=== PATIENT | female | born 1995 | race Caucasian/White ===

== ENCOUNTER → 2023-11-02 13:26 | Outpatient (REF) | payer BC, SELFPAY ==
[2023-11-02 14:25] LABS: % Basophils 0.3 % (0-2); % Eosinophils 0.6 % (0-6); % Immature Granulocytes 0.3 % (0-0.5); % Lymphocytes 22.9 % (20.5-51.1); % Monocytes 6.1 % (1.7-9.3); % Neutrophils 69.8 % (42.2-75.2); Absolute Eosinophils 0.1 10^3/uL (0-0.7); Absolute Monocytes 0.5 10^3/uL (0.1-0.6); Absolute Neutrophils 6.1 10^3/uL (1.4-6.5); Hematocrit 41.7 % (37.0-47.0); Hemoglobin 14.2 g/dL (12.0-16.0); Mean Corp Hgb Conc. 34.1 g/dL (33.0-37.0); Mean Corpuscular Hgb 31.8 pg (27.0-31.0); Mean Corpuscular Volume 93.3 fL (81.0-99.0); Mean Platelet Volume 11.5 fL (7.4-10.4); Nucleated Red Blood Cells % 0 %; Platelet Count 171 10^3/uL (130-400); Red Blood Cell Count 4.47 10^6/uL (4.20-5.40); Red Cell Dist. Width 12.4 % (11.5-14.5); White Blood Cell Count 8.8 10^3/uL (4.8-10.8)
[2023-11-02 14:57] LABS: ALT (SGPT) 14 U/L (0-35); AST (SGOT) 25 U/L (14-36); Albumin 5.1 g/dl (3.5-5.0); Alkaline Phosphatase 61 U/L (38-126); Blood Urea Nitrogen 14 mg/dl (7-17); Calcium 9.8 mg/dl (8.4-10.2); Carbon Dioxide 26 mmol/L (22-30); Chloride 99 mmol/L (98-107); Glucose 128 mg/dl (70-99); Potassium 3.7 mmol/L (3.5-5.1); Sodium 136 mmol/L (135-145); Total Bilirubin 0.4 mg/dl (0.2-1.3); Total Protein 7.6 g/dl (6.3-8.2); eGFR > 60.00
[2023-11-02 15:01] LABS: C-Reactive Protein < 5.00 mg/L (0.0-10.00); Erythrocyte Sed Rate 2 mm/hour (0-20)
== END ==
LOC: REG 13:26
PROVIDERS: ATTENDING PHYSICIAN Internal Medicine Rheumatology; FAMILY PHYSICIAN Emergency Medicine
DX: R76.8 Other specified abnormal immunological findings in serum (principal); R53.82 Chronic fatigue, unspecified; M35.7 Hypermobility syndrome
CPT/HCPCS: 36415; 80053; 85025; 85652; 86140

== ENCOUNTER → 2023-12-15 15:09 | Outpatient (REF) | payer BC, SELFPAY | LOC: RAD 15:09 | PROVIDERS: ATTENDING PHYSICIAN Internal Medicine Gastroenterology; FAMILY PHYSICIAN Emergency Medicine; REFERRING PHYSICIAN Internal Medicine Rheumatology | DX: K59.09 Other constipation (principal) | CPT/HCPCS: 74019 ==

== ENCOUNTER → 2024-02-26 14:18 | Outpatient (REF) | payer BC, SELFPAY ==
[2024-02-26 14:51] LABS: Erythrocyte Sed Rate 4 mm/hour (0-20)
[2024-02-26 14:55] LABS: Hematocrit 42.3 % (37.0-47.0); Mean Corp Hgb Conc. 33.1 g/dL (33.0-37.0); Mean Corpuscular Hgb 31.5 pg (27.0-31.0); Mean Corpuscular Volume 95.1 fL (81.0-99.0); Mean Platelet Volume 11.5 fL (7.4-10.4); Platelet Count 154 10^3/uL (130-400); Red Blood Cell Count 4.45 10^6/uL (4.20-5.40); Red Cell Dist. Width 12.7 % (11.5-14.5); White Blood Cell Count 5.4 10^3/uL (4.8-10.8)
[2024-02-26 15:25] LABS: ALT (SGPT) 23 U/L (0-35); AST (SGOT) 37 U/L (14-36); Albumin 4.6 g/dl (3.5-5.0); Alkaline Phosphatase 71 U/L (38-126); Blood Urea Nitrogen 9 mg/dl (7-17); Calcium 9.3 mg/dl (8.4-10.2); Carbon Dioxide 27 mmol/L (22-30); Chloride 102 mmol/L (98-107); Glucose 101 mg/dl (70-99); Potassium 3.9 mmol/L (3.5-5.1); Sodium 138 mmol/L (135-145); Total Bilirubin 0.5 mg/dl (0.2-1.3); Total Protein 7.1 g/dl (6.3-8.2); eGFR > 60.00
[2024-02-26 16:01] LABS: % Basophils 0.6 % (0-2); % Eosinophils 2.2 % (0-6); % Immature Granulocytes 0.4 % (0-0.5); % Lymphocytes 18.3 % (20.5-51.1); % Monocytes 11.3 % (1.7-9.3); % Neutrophils 67.2 % (42.2-75.2); Absolute Eosinophils 0.1 10^3/uL (0-0.7); Absolute Monocytes 0.6 10^3/uL (0.1-0.6); Absolute Neutrophils 3.7 10^3/uL (1.4-6.5); Nucleated Red Blood Cells % 0 %
== END ==
LOC: REG 14:18
PROVIDERS: ATTENDING PHYSICIAN Internal Medicine Rheumatology; FAMILY PHYSICIAN Emergency Medicine; REFERRING PHYSICIAN Internal Medicine Gastroenterology
DX: M35.00 Sjogren syndrome, unspecified (principal); M35.7 Hypermobility syndrome; R53.82 Chronic fatigue, unspecified; R76.8 Other specified abnormal immunological findings in serum; R19.5 Other fecal abnormalities
CPT/HCPCS: 36415; 80053; 83993; 85025; 85652; 86140; 87045; 87046; 87077; 87177; 87209; 87324; 87328; 87329; 87427; 87449; 89055

== ENCOUNTER 2024-03-01 20:31 | Emergency (ER) | payer BC, SELFPAY ==
[2024-03-01 20:34] VITALS: BP 144/92
[2024-03-01 23:18] LABS: HCG, Urine Qualitative Screen Negative; Urine Albumin Negative (Neg - Trace); Urine Bilirubin Negative (Negative); Urine Character Clear (Clear); Urine Color Yellow; Urine Glucose Negative (Negative); Urine Ketone Negative (Negative); Urine Leukocyte Negative (Negative); Urine Nitrite Negative (Negative); Urine Occult Blood Negative (Negative); Urine Specific Gravity 1.005 (<1.030); Urine Urobilinogen Negative (Neg - 1+)
--- NOTE | 2024-03-01 23:42 | ED.GENMED ---
History of Present Illness
<Iman Nevarez NP - Last Filed: 03/01/24 23:48>
General
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
Source: patient
Exam Limitations: none
Time Seen by Provider: 03/01/24 21:19
Nursing documentation reviewed up to this point in time: agreed with
History of Present Illness
History of Present Illness:
Patient to ED with left inguinal discomfort. Develope discomfort today. States she noticed swelling to site. Also reports vaginal spotting. States she is due for period but is only spotting. To ED accompanied by mother for eval. Denies
fever/chills. Recent COVID illness.
Past History
<Iman Nevarez NP - Last Filed: 03/01/24 23:48>
Past History
ED Past Medical History: HTN, Other (UTI, idiopathic urticaria) and Other (thyroid nodule)
ED Past Surgical History: Tonsilectomy
Social History
Tobacco: Non-smoker
Alcohol: Occasional
Drug: None
Personal: Single
Living: with family
Employment: Student
Family History
Family History: Negative Early CAD or Sudden
Review of Systems
<Iman Nevarez NP - Last Filed: 03/01/24 23:48>
Review of Systems
Allergies reviewed?: Yes
All Other Systems: ROS reviewed and negative except as documented in HPI and ROS
Constitutional: Reports no symptoms
EENT: Reports no symptoms
Respiratory: Reports no symptoms
Cardiac: Reports no symptoms
ABD/GI: Reports no symptoms
: Reports other (vaginal spotting)
Musculoskeletal: Reports other (left inguinal swelling, pain)
Skin: Reports no symptoms
Neurological: Reports no symptoms
Psychiatric: Reports no symptoms
Phy Exam
<Iman Nevarez NP - Last Filed: 03/01/24 23:48>
General Physical Exam
General Presentation: well appearing and no apparent distress
General age: appears stated age
General Skin: warm and dry
General Habitus: normal
Gastrointestinal Exam
Gastrointestinal Exam: non tender, soft, no organomegaly, no pulsatile mass, non distended and other (Left inguinal tenderness. Small firm left inguinal node noted)
Musculoskeletal Exam
Musculoskeletal Exam: full ROM and neuro vasc intact
Skin Exam
Skin Exam: normal color, warm/dry and no rash
Psychiatric Exam
Psychiatric Exam: normal mood/affect
Course
<Iman Nevarez NP - Last Filed: 03/01/24 23:48>
Orders/Labs/Results
Orders:
Orders
03/01/24 22:13
US Non Vasc LOWER Ext LT Urgent
Reason For Exam: inguinal pain, swelling
03/01/24 22:14
Test Result ONCE
Pelvis (Non Obstetric) US [US Pelvis Only (non-obstetric)] Urgent
Comment:
Reason For Exam: abnormal bleeding
03/01/24 23:09
HCG, Urine Qualitative Screen Urgent
Date Specimen was Collected: 03/01/24
Time Specimen was Collected: 22:17
Urinalysis Reflex To Culture Urgent
Date Specimen was Collected: 03/01/24
Time Specimen was Collected: 22:17
Vital Signs
Initial and Last Documented VS:
Initial Vital Signs
Temp Pulse Resp BP Pulse Ox
97.4 F 92 18 144/92 100
03/01/24 20:34 03/01/24 20:34 03/01/24 20:34 03/01/24 20:34 03/01/24 20:34
Last Documented Vital Signs
Temp Pulse Resp BP Pulse Ox
97.4 F 92 18 144/92 100
03/01/24 20:34 03/01/24 20:34 03/01/24 20:34 03/01/24 20:34 03/01/24 20:34
<Grayson Rojo DO - Last Filed: 03/01/24 23:57>
Orders/Labs/Results
Orders:
Orders
03/01/24 22:13
US Non Vasc LOWER Ext LT Urgent
Reason For Exam: inguinal pain, swelling
03/01/24 22:14
Test Result ONCE
Pelvis (Non Obstetric) US [US Pelvis Only (non-obstetric)] Urgent
Comment:
Reason For Exam: abnormal bleeding
03/01/24 23:09
HCG, Urine Qualitative Screen Urgent
Date Specimen was Collected: 03/01/24
Time Specimen was Collected: 22:17
Urinalysis Reflex To Culture Urgent
Date Specimen was Collected: 03/01/24
Time Specimen was Collected: 22:17
Vital Signs
Initial and Last Documented VS:
Initial Vital Signs
Temp Pulse Resp BP Pulse Ox
97.4 F 92 18 144/92 100
03/01/24 20:34 03/01/24 20:34 03/01/24 20:34 03/01/24 20:34 03/01/24 20:34
Last Documented Vital Signs
Temp Pulse Resp BP Pulse Ox
97.4 F 92 18 144/92 100
03/01/24 20:34 03/01/24 20:34 03/01/24 20:34 03/01/24 20:34 03/01/24 20:34
<Iman Nevarez NP - Last Filed: 03/01/24 23:48>
*Radiology
Radiology exam reviewed: radiology read reviewed
*Pulse Oximetry
Patient hypoxic: no
*Critical Care Note
Total Time (30-74mins, 75-104mins- exclusive of procedures): Not Applicable
<Iman Nevarez NP - Last Filed: 03/01/24 23:48>
Update Note
Update Note:
Case discussed with Dr. Rojo who also evaluated this patient. She had labs drawn on thursday which I was able to review. No concerning results. US report reviewed wtih patient. Normal pelvic US. Small left inguinal node noted. She is
discharged home and will follow up with her PCP.
ED Attending Note
<Iman Nevarez INDUSTRIAL MACHINERY MECHANIC - Last Filed: 03/01/24 23:48>
-
Portions of this chart may have been created with voice recognition software.� Occasional wrong word or��sound alike� substitutions may have occurred due to the inherent limitations of voice recognition software.
<Grayson Rojo, - Last Filed: 03/01/24 23:57>
ED Attending Note
Patient seen and examined by attending physician: Yes
I performed the substantive portion of visit, reviewed & personally made and approve the management plan that is documented in note by myself or MAURICIO.: Yes
ED Attending Note:
28-year-old female with prominent lymph nodes in her left groin. I personally examined these lymph nodes. They are mobile and ropey. Did not appear to be an abscess. Patient seen and examined in conjunction with the nurse practitioner. I have
reviewed and agree with her history and treatment plan. Patient to be discharged home in improved condition.
Discharge Plan
Departure
Patient Disposition: Home (Routine Discharge)
Date of Disposition: 03/01/24
Time of Disposition: 23:41
Patient with high blood pressure during this ER visit?: No
Condition: Good
Covid-19: Not Applicable
Discharge Problem:
Inguinal adenopathy
Instructions: Lymphadenitis (DC)
Prescriptions:
No Action
fexofenadine [Margaret] 180 MG tablet
180 mg PO DAILY
montelukast 10 MG tablet
10 mg PO QPM
medroxyprogesterone [Depo-SubQ provera 104] 104 MG/0.65 ML syringe
104 mg SQ .Q3 MONTHS
Lactobacillus acidophilus [Probiotic] 1 EACH capsule
1 ea PO DAILY
hydrocortisone acetate 25 MG suppository
25 mg MT BID Qty: 10 0RF
Referrals:
Jenifer Munoz MD [Family Provider] - Follow up in 2-3 days
Interventions
Interventions:
*Risk Screen - Suicide Last Done: 03/01/24 20:34
*Neglect/Abuse Screening Last Done: 03/01/24 20:34
HS-Qgaqhw-Wxmtqptcpr Assessment Last Done: 03/01/24 22:56
ED-Female Genitourinary Assessment Last Done: 03/01/24 22:56
Discharge Date and Time
Print Language: HUNGARIAN
[2024-03-02 00:08] VITALS: BP 116/80
== END 2024-03-02 00:10 | disposition home or self-care (01) ==
LOC: EMR 20:31
PROVIDERS: Nurse Practitioner; EMERGENCY PHYSICIAN Emergency Medicine; FAMILY PHYSICIAN Emergency Medicine
DX: R59.0 Localized enlarged lymph nodes (principal)
CPT/HCPCS: 99284; 76856; 76882; 81003; 81025

== ENCOUNTER → 2024-04-07 16:23 | Outpatient (REF) | payer BC, SELFPAY | LOC: RAD 16:23 | PROVIDERS: ATTENDING PHYSICIAN Nurse Practitioner Family; FAMILY PHYSICIAN Emergency Medicine | DX: M54.50 Low back pain, unspecified (principal); R59.9 Enlarged lymph nodes, unspecified | CPT/HCPCS: 72110 ==

== ENCOUNTER → 2024-04-22 14:22 | Outpatient (REF) | payer BC, SELFPAY | LOC: HWRAD 14:22 | PROVIDERS: ATTENDING PHYSICIAN Nurse Practitioner Family; FAMILY PHYSICIAN Emergency Medicine; REFERRING PHYSICIAN Internal Medicine Rheumatology | DX: R59.9 Enlarged lymph nodes, unspecified (principal); A07.2 Cryptosporidiosis; R10.2 Pelvic and perineal pain | CPT/HCPCS: 74177; 76882; Q9967 ==

== ENCOUNTER → 2024-07-12 15:01 | Outpatient (REF) | payer BC, SELFPAY ==
[2024-07-12 16:17] LABS: Free T4 0.93 ng/dl (0.78-2.19)
[2024-07-12 16:31] LABS: TSH 0.83 uIU/ml (0.47-4.68)
== END ==
LOC: RAD 15:01
PROVIDERS: ATTENDING PHYSICIAN Emergency Medicine
DX: E04.1 Nontoxic single thyroid nodule (principal)
CPT/HCPCS: 36415; 76536; 84439; 84443

== ENCOUNTER → 2024-09-22 13:49 | Outpatient (REF) | payer BC, SELFPAY ==
[2024-09-22 14:27] LABS: % Basophils 0.7 % (0-2); % Eosinophils 1.4 % (0-6); % Immature Granulocytes 0.2 % (0-0.5); % Lymphocytes 29.8 % (20.5-51.1); % Monocytes 10.9 % (1.7-9.3); Absolute Eosinophils 0.1 10^3/uL (0-0.7); Absolute Lymphocytes 1.3 10^3/uL (1.2-3.4); Absolute Monocytes 0.5 10^3/uL (0.1-0.6); Absolute Neutrophils 2.5 10^3/uL (1.4-6.5); Hematocrit 45.3 % (37.0-47.0); Hemoglobin 14.8 g/dL (12.0-16.0); Mean Corp Hgb Conc. 32.7 g/dL (33.0-37.0); Mean Corpuscular Hgb 32.1 pg (27.0-31.0); Mean Corpuscular Volume 98.3 fL (81.0-99.0); Mean Platelet Volume 11.2 fL (7.4-10.4); Nucleated Red Blood Cells % 0 %; Platelet Count 168 10^3/uL (130-400); Red Blood Cell Count 4.61 10^6/uL (4.20-5.40); Red Cell Dist. Width 12.6 % (11.5-14.5); White Blood Cell Count 4.4 10^3/uL (4.8-10.8)
[2024-09-22 14:53] LABS: Erythrocyte Sed Rate 5 mm/hour (0-20)
[2024-09-22 14:58] LABS: ALT (SGPT) 20 U/L (0-35); AST (SGOT) 23 U/L (14-36); Albumin 5.1 g/dl (3.5-5.0); Alkaline Phosphatase 69 U/L (38-126); Blood Urea Nitrogen 11 mg/dl (7-17); Calcium 9.8 mg/dl (8.4-10.2); Carbon Dioxide 28 mmol/L (22-30); Chloride 102 mmol/L (98-107); Glucose 92 mg/dl (70-99); Potassium 4.5 mmol/L (3.5-5.1); Sodium 139 mmol/L (135-145); Total Bilirubin 0.8 mg/dl (0.2-1.3); Total Protein 7.4 g/dl (6.3-8.2); eGFR > 60.00
[2024-09-22 15:02] LABS: C-Reactive Protein < 5.00 mg/L (0.0-10.00)
== END ==
LOC: REG 13:49
PROVIDERS: ATTENDING PHYSICIAN Internal Medicine Rheumatology; FAMILY PHYSICIAN Emergency Medicine
DX: G93.32 Myalgic encephalomyelitis/chronic fatigue syndrome (principal)
CPT/HCPCS: 36415; 80053; 85025; 85652; 86140

== ENCOUNTER → 2025-02-15 16:50 | Outpatient (REF) | payer BC, SELFPAY | LOC: RAD 16:50 | PROVIDERS: ATTENDING PHYSICIAN Internal Medicine; FAMILY PHYSICIAN Emergency Medicine | DX: M46.1 Sacroiliitis, not elsewhere classified (principal); M54.50 Low back pain, unspecified | CPT/HCPCS: 72100; 72202 ==

== ENCOUNTER → 2025-04-12 15:37 | Outpatient (REF) | payer BC, SELFPAY | LOC: RAD 15:37 | PROVIDERS: ATTENDING PHYSICIAN Internal Medicine; FAMILY PHYSICIAN Emergency Medicine | DX: R59.1 Generalized enlarged lymph nodes (principal); R59.0 Localized enlarged lymph nodes | CPT/HCPCS: 76536; 76882 ==

== ENCOUNTER → 2025-05-22 15:40 | Outpatient (REF) | payer BC, SELFPAY ==
[2025-05-22 17:00] LABS: Urine Character Clear (Clear)
[2025-05-22 17:15] LABS: Hematocrit 41.4 % (37.0-47.0); Hemoglobin 13.1 g/dL (12.0-16.0); Mean Corp Hgb Conc. 31.6 g/dL (33.0-37.0); Mean Corpuscular Volume 95.4 fL (81.0-99.0); Nucleated Red Blood Cells % 0 %; Platelet Count 144 10^3/uL (130-400); Red Cell Dist. Width 12.7 % (11.5-14.5)
[2025-05-22 17:33] LABS: ALT (SGPT) 17 U/L (0-35); AST (SGOT) 24 U/L (14-36); Albumin 4.5 g/dl (3.5-5.0); Alkaline Phosphatase 48 U/L (38-126); Blood Urea Nitrogen 9 mg/dl (7-17); Calcium 9.4 mg/dl (8.4-10.2); Carbon Dioxide 28 mmol/L (22-30); Chloride 106 mmol/L (98-107); Glucose 98 mg/dl (70-99); Potassium 4.1 mmol/L (3.5-5.1); Sodium 136 mmol/L (135-145); Total Protein 7.2 g/dl (6.3-8.2); eGFR > 60.00
[2025-05-22 17:36] LABS: C-Reactive Protein < 5.00 mg/L (0.0-10.00)
[2025-05-22 17:53] LABS: Free T3 3.76 pg/ml (2.77-5.27)
[2025-05-22 18:07] LABS: TSH 1.01 uIU/ml (0.47-4.68)
== END ==
LOC: REG 15:40
PROVIDERS: ATTENDING PHYSICIAN Internal Medicine; FAMILY PHYSICIAN Emergency Medicine
DX: T50.905A Adverse effect of unspecified drugs, medicaments and biological substances, initial encounter (principal); Z79.899 Other long term (current) drug therapy; M35.9 Systemic involvement of connective tissue, unspecified; M06.4 Inflammatory polyarthropathy; M32.9 Systemic lupus erythematosus, unspecified; Z51.81 Encounter for therapeutic drug level monitoring; L93.2 Other local lupus erythematosus; E21.5 Disorder of parathyroid gland, unspecified; E07.9 Disorder of thyroid, unspecified
CPT/HCPCS: 36415; 80053; 81003; 82570; 83516; 83970; 84156; 84439; 84443; 84481; 85025; 85652; 86140; 86160; 86225

== ENCOUNTER → 2025-05-29 10:43 | Outpatient (REF) | payer BC, SELFPAY ==
[2025-05-29 11:27] LABS: 24 Hour Urine Total Volume 2600 ml
== END ==
LOC: REG 10:43
PROVIDERS: ATTENDING PHYSICIAN Internal Medicine; FAMILY PHYSICIAN Emergency Medicine
DX: R80.9 Proteinuria, unspecified (principal)
CPT/HCPCS: 81050; 84156

== ENCOUNTER → 2025-07-21 12:12 | Outpatient (REF) | payer BC, SELFPAY ==
[2025-07-21 12:37] VITALS: BP 139/90; BP_SYST 78
[2025-07-21 13:54] VITALS: BP 130/95; BP_SYST 61
[2025-07-21 14:04] VITALS: BP 130/95
== END ==
LOC: RADI 12:12
PROVIDERS: ATTENDING PHYSICIAN Internal Medicine Hematology & Oncology; FAMILY PHYSICIAN Emergency Medicine
DX: R59.0 Localized enlarged lymph nodes (principal); Z80.7 Family history of other malignant neoplasms of lymphoid, hematopoietic and related tissues
CPT/HCPCS: 38505; 76942; 88173